=== PATIENT | male | born 1965 | race Asian ===

== ENCOUNTER 2020-06-15 14:50 | Emergency (ER) | payer OTHER ==
[~2020-06-15] VITALS: Ht 170.2 cm; Wt 86.2 kg
[2020-06-15] MEDS: ACETAMINOPHEN 325 MG TABLET PO ONE (16:05)
[2020-06-15 17:16] VITALS: BP_SYST 123
== END 2020-06-15 17:16 | disposition home or self-care (01) ==
LOC: SED 14:50
DX: S06.0X0A Concussion without loss of consciousness, initial encounter (principal); V49.9XXA Car occupant (driver) (passenger) injured in unspecified traffic accident, initial encounter; Y93.89 Activity, other specified; Y92.89 Other specified places as the place of occurrence of the external cause; Y99.8 Other external cause status
CPT/HCPCS: 70450-TC; 72125-TC; 73560-TC; 76376; 99285